=== PATIENT | female | born 1970 | race Caucasian/White ===

== ENCOUNTER 2017-02-03 15:53 | Emergency (ER) | payer OTHER ==
--- NOTE | ~2017-02-03 | CT4 ---
[facility] A Service of [facility] RADIOLOGY TEXT RESULTS PATIENT: TIMMY RIOS LOCATION: SED : 72 UNIT #: [id number] AGE: [address]: SONDRA OVALLE SEX: F ORDER DR: [id number] [address] [address] [id number] E MR#: [id number] Acc #: [id number] NAME: TIMMY RIOS : 1970 SEX: F STUDY DATE/TIME: 02/03/2017 18:11 UNIT: SED ROOM: STUDY DESCRIPTION: CT Abd and Pelv Wo Cont Attending Physician: Sondra Ovalle Ordering Physician: Sondra Ovalle Primary Care Physician: Anita Primary Care Physician MEDICAL IMAGING REPORT This report is preliminary unless electronic signature is present. EXAM CT abdomen and pelvis without IV contrast. COMPARISON February 03, 2017. INDICATION 46-year-old female with right flank abdominal pain for 3 days. Hematuria and UTI. TECHNIQUE Axial CT imaging abdomen and pelvis was performed without IV contrast. Coronal and sagittal reformats were constructed. Lack of IV contrast limits evaluation of adenopathy, vasculature, and viscera. This CT exam was performed with one or more of the following radiation dose reduction techniques: automatic exposure control, adjustment of mA and/or kV according to patient size, and iterative reconstruction. FINDINGS Tiny fat-containing umbilical hernia. 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 Mild levoscoliosis of the lumbar spine. No acute fractures or suspicious osseous lesions. Small posterior protrusions at L4-L5 and L5-S1. In the right lower lobe there are grossly stable pleural-based nodular densities measuring 5 mm, 5 mm, and 4 mm. Separate posterior pleural-based triangular opacity in the dependent right lower lobe is most consistent with subsegmental atelectasis. In the left lower lobe, there are four stable nodular densities measuring up to 4 mm. The liver, gallbladder, pancreas, and adrenal glands are unremarkable. There are calcified splenic granulomas. The kidneys, ureters, and urinary STS. [facility] A Service of [facility] RADIOLOGY TEXT RESULTS PATIENT: TIMMY RIOS LOCATION: SED : 72 UNIT #: [id number] AGE: [address]: SONDRA OVALLE SEX: F ORDER DR: bladder are within normal limits. Intrauterine contraceptive device is noted with expected configuration. No evidence of adnexal mass. No bowel obstruction. The appendix is normal. No free fluid or pneumoperitoneum. Abdominal aorta is normal in caliber. No adenopathy. IMPRESSION 1. No acute findings. 2. There are bilateral pulmonary nodules as described by the report, largest which measures up to 5 mm. These are stable from August 2016. Some of these nodules have slightly irregular contours. Consider CT chest followup without IV contrast in 1 year to document stability. 3. Expected configuration of intrauterine contraceptive device. 4. Posterior disc protrusion L4-L5 and L5-S1. Dictated by... Robel Kim M.D. THIS IS AN ELECTRONICALLY VERIFIED REPORT Robel Kim M.D. at 02/09/2017 10:30 AM Magdalena TD: 02/04/2017 05:01 JOB #: [id number] MEDICAL IMAGING REPORT Page 1 of 1
[~2017-02-03 15:53] MED LIST: CHOLESTEROL MED; CITALOPRAM PO; LISINOPRIL PO; ONDANSETRON ODT4 MG PO
[2017-02-03 17:16] LABS: URINE SOURCE CLEAN CATCH
[2017-02-03 17:18] LABS: BASOPHIL% 0.4 % (0-2.5); EOSINOPHIL# 0.3 X10e3 (0-0.7); EOSINOPHIL% 3.7 % (0.0-7.0); HEMATOCRIT 38.1 % (35.0-45.0); HEMOGLOBIN 12.8 gm/dL (12.0-16.0); LYMPHOCYTE# 1.8 X10e3 (1.0-3.5); LYMPHOCYTE% 25.3 % (17.0-45.0); MEAN CORPUSCULAR HEMOGLOBIN 30.5 PG (28-34); MEAN CORPUSCULAR HGB CONC 33.6 g/dL (30-36); MONOCYTE# 0.5 X10e3 (0-1.0); NEUTROPHIL# 4.5 X10e3 (1.5-7.1); NEUTROPHIL% 63.6 % (40-75); PLATELET COUNT 334 X10e3 (140-420); RED BLOOD COUNT 4.19 X10e (3.90-5.30); WHITE BLOOD COUNT 7.2 X10e3 (4.0-10.5)
[2017-02-03 17:19] LABS: URINE APPEARANCE HAZY; URINE BILIRUBIN NEG (NEG); URINE BLOOD 1+ (NEG); URINE COLOR YELLOW; URINE GLUCOSE NEG (NORM); URINE KETONE TRACE (NEG); URINE LEUKOCYTE ESTERASE TRACE (NEG); URINE NITRATE NEG (NEG); URINE PROTEIN TRACE (NEG); URINE SPECIFIC GRAVITY 1.025 (1.003-1.035); URINE UROBILINOGEN 0.2 MG/DL (NORM)
[2017-02-03 17:22] LABS: DIFF IND NO; MICRO INDICATED? YES
[2017-02-03 17:26] LABS: CULTURE INDICATED? YES; URINE BACTERIA 2+ (NEG); URINE MUCUS PRESENT; URINE SQUAMOUS EPITHELIAL CELL MANY /[HPF]; URINE YEAST PRESENT
[2017-02-03 17:55] LABS: ALBUMIN SERUM 4.2 g/dL (3.5-5.0); ALKALINE PHOSPHATASE 57 U/L (32-92); ALT (SGPT) 22 U/L (10-40); AMYLASE 23 U/L (0-46); AST (SGOT) 18 U/L (10-42); BILIRUBIN,TOTAL 0.4 mg/dL (0.2-2.0); BLOOD UREA NITROGEN 13 mg/dL (9-23); BUN/CREATININE RATIO 18.57; CALCIUM SERUM 8.7 mg/dL (8.4-10.2); CARBON DIOXIDE 29 mmol/L (22-31); CHLORIDE 109 mmol/L (100-111); CREATININE SERUM 0.7 mg/dL (0.6-1.4); GLOM FILT RATE Estimated 104.6 mL/min (>60); GLUCOSE FASTING 89 mg/dL (70-110); LIPASE 17 U/L (22-51); PROTEIN TOTAL SERUM 7.2 g/dL (6.0-8.3); SODIUM 138 mmol/L (135-145)
[2017-02-03 17:57] LABS: BILIRUBIN, DIRECT <0.1 mg/dL (0.0-0.2); BILIRUBIN,INDIRECT 0.3 mg/dL (0.0-0.9)
== END 2017-02-03 19:05 | disposition home or self-care (01) ==
LOC: SED 15:53
PROVIDERS: Physician Assistant
DX: N30.01 Acute cystitis with hematuria (principal); B37.3 Candidiasis of vulva and vagina; I10 Essential (primary) hypertension
CPT/HCPCS: 36415; 74176; 80048; 80076; 81003; 82150; 83690; 84703; 85025; 87086; 96361; 96374; 99284; J2405

== ENCOUNTER 2017-04-17 21:08 | Emergency (ER) | payer MEDICAID ==
[~2017-04-17] VITALS: Ht 160 cm; Wt 95.2 kg
--- NOTE | ~2017-04-17 | CR126 ---
[facility] A Service of [facility] RADIOLOGY TEXT RESULTS PATIENT: TIMMY RIOS LOCATION: SED : 71 UNIT #: [id number] AGE: [address]: Lary Gil MD SEX: F ORDER DR: [id number] [address] [address] [id number] E MR#: [id number] Acc #: [id number] NAME: TIMMY RIOS. : 1970 SEX: F STUDY DATE/TIME: 04/17/2017 22:00 UNIT: SED ROOM: STUDY DESCRIPTION: CR Foot Complete Min 3 View Lt Attending Physician: Lary Gil M.D. Ordering Physician: Lary Gil M.D. Primary Care Physician: Rhiannon Crowell MEDICAL IMAGING REPORT This report is preliminary unless electronic signature is present. EXAM Left foot 3 views. HISTORY Foot pain after fall today. Lateral pain. FINDINGS 3 views left foot demonstrate oblique fracture through the distal fibular metaphysis with 4 mm separation of the fracture fragment. Please see ankle x-ray reported separately. Remainder of the study demonstrates no acute finding. No foot fracture. Small posterior and plantar calcaneal spurs. Dictated by... Maxim Luther M.D. THIS IS AN ELECTRONICALLY VERIFIED REPORT Maxim Luther M.D. at 04/18/2017 2:32 PM DFL/gz TD: 04/18/2017 13:23 JOB #: [id number] MEDICAL IMAGING REPORT Page 1 of 1
--- NOTE | ~2017-04-17 | CR20 ---
[facility] A Service of [facility] RADIOLOGY TEXT RESULTS PATIENT: TIMMY RIOS LOCATION: SED : 71 UNIT #: [id number] AGE: [address]: Lary Gil MD SEX: F ORDER DR: [id number] [address] [address] [id number] E MR#: [id number] Acc #: [id number] NAME: TIMMY RIOS. : 1970 SEX: F STUDY DATE/TIME: 04/17/2017 22:00 UNIT: SED ROOM: STUDY DESCRIPTION: CR Ankle Min 3 Views Lt Attending Physician: Lary Gil M.D. Ordering Physician: Lary Gil M.D. Primary Care Physician: Nargis Crowell M.D. MEDICAL IMAGING REPORT This report is preliminary unless electronic signature is present. EXAM Left ankle 3 views HISTORY Lateral ankle pain after fall down stairs today. FINDINGS 3 views of the left ankle demonstrate oblique fracture through the distal fibular metaphysis with 4mm separation of the fracture fragments and approximately 10 degrees posterior angulation of the distal fracture fragment. Moderate soft tissue swelling about the ankle. No joint space narrowing. No dislocation. No additional fracture. Dictated by... Maxim Luther M.D. THIS IS AN ELECTRONICALLY VERIFIED REPORT Maxim Luther M.D. at 04/19/2017 11:42 PM DFL/df TD: 04/18/2017 13:52 JOB #: [id number] MEDICAL IMAGING REPORT Page 1 of 1
== END 2017-04-17 23:21 | disposition home or self-care (01) ==
LOC: SED 21:08
DX: S82.832A Other fracture of upper and lower end of left fibula, initial encounter for closed fracture (principal); I10 Essential (primary) hypertension; F17.200 Nicotine dependence, unspecified, uncomplicated; Z79.899 Other long term (current) drug therapy; W01.0XXA Fall on same level from slipping, tripping and stumbling without subsequent striking against object, initial encounter; Y92.009 Unspecified place in unspecified non-institutional (private) residence as the place of occurrence of the external cause
CPT/HCPCS: 29515; 73610; 73630; 99283